=== PATIENT | male | born 1995 | race Caucasian/White ===

== ENCOUNTER 2023-12-15 09:55 | Emergency (ER) | payer OTHER ==
[~2023-12-15] VITALS: Ht 177.8 cm; Wt 91.0 kg
[2023-12-15 10:01] VITALS: BP 128/91; PULSE 76; RESP 18; TEMP 98.6; O2SAT 99
[2023-12-15] MEDS ORDERED: LIDO700A30 TP (10:51)
[2023-12-15] MEDS ORDERED: GABA-532 PO (10:51)
[2023-12-15] MEDS ORDERED: NAPR-681 MT (10:51)
== END 2023-12-15 11:20 ==
LOC: ER 09:55
DX: B02.9 Zoster without complications (principal)
CPT/HCPCS: 99283